=== PATIENT | female | born 1995 | race Caucasian/White ===

== ENCOUNTER 2022-05-14 08:37 | Outpatient (REF) | payer MEDICAID, SELFPAY ==
--- OUTSIDE RECORDS SUMMARY | 2022-05-14 08:39 | XMS_ITS | CCD ---
:1995 Author Care Team Providers Name Role Phone CAIN DUENAS, MERI Kauffman Attending Physician Unavailable Vital Signs Unknown or Not Available. Allergies Allergy Code Allergy Type Reaction Status IBUPROFEN 5640 Drug allergy KIDNEY DISFUNCTION, CRYSTALI ZED URINE Active MOTRIN 20231120 Drug allergy KIDNEY FAILURE Active ASPIRIN 1191 Drug allergy KIDNEY FAILURE Active Procedures Procedure Code Procedure Type Date Repair, Intermediate, Face, Ears, Eyelids, Nose, 06713 CPT 12/20/2020 Lips And/Or Mucous Membranes; 2.5 cm Or Less Excise, Benign Skin Lesion, Incl Margins, 30134 CPT 12/20/2020 Face/Ears/Eyelids/Nose/Lips/Muco; Excised Diam 0.6-1.0 cm History of Immunizations Unknown or Not Available. Problems No Known Problems Results Unknown or Not Available. Active Medications Medication Code Dose Units Frequency Route Modification Start Date/Time Cyclobenzaprine 395788 1 TABLET EVERY 8 ORAL 01/17/20 22 10MG Oral Tablet HOURS 07:17 Prescription Detail TAKE 1 TABLET ORAL EVERY 8 H OURS prn muscle spasm or back pain Medications Administered During Visit Unknown or Not Available. Encounters Encounter Diagnosis Diagnosis Code Start Date Epidermal cyst L720 12/20/2020 Social History Smoking Status Code Start Date End Date Current every day smoker [id number] 2005 Patient Decision Aids Unknown or Not Available. Discharge Instructions You were admitted to [facility] on 12/20/2020 10:43 with a principal diagnosis of Epidermal cyst You had the following procedures done: Repair, Intermediate, Face, Ears, Eyelids, Nose, Lips And/Or Mucous Membranes; 2.5 cm Or Less Excise, Benign Skin Lesion, Incl Margins, Face/Ears/Eyelids/Nose/Lips/Muc o; Excised Diam 0.6-1.0 cm You were discharged from [facility] on 12/20/2020 10:43 Should you have any questions prior to d ischarge, please contact a member of your healthcare team. If you have left the spital and have any questions, please contact your primary care physician. Chief Complaint and Reason For Visit Unknown or Not Available. Function Status Unknown or Not Available. Plan of Care Unknown or Not Available. Referral/Transition of Care Unknown or Not Available.
--- OUTSIDE RECORDS SUMMARY | 2022-05-14 08:40 | XMS_ITS | CCD ---
:1995 Author Care Team Providers Name Role Phone JODEE MALCOLM Attending Physician Unavailable JODEE MALCOLM Er Physician 1 Unavailable FERNANDO Warren Registered Nurse Unavailable Vital Signs Vital Sign Value Unit Date/Time Recent/Initial? BMI (Body Mass Index) 27.84 kg/m^2 01/16/2022 06:40 In itial VS Weight Measured 188 lbs 01/16/2022 06:40 Initial VS Height 68.9 in 01/16/2022 06:40 Initial VS BSA (Body Surface Area) 2.04 m^2 01/16/2022 06:40 Initial VS BP Systolic 129 mmHg 01/16/2022 06:40 Initial VS BP Diastolic 79 mmHg 01/16/2022 06:40 Initial VS Respiratory Rate 18 bpm 01/16/2022 06:40 Initial VS Heart Rate 89 bpm 01/16/2022 06:40 Initial VS O2 % BldC Oximetry 100 % 01/16/2022 06:40 Initi al VS Body Temperature 36.4 degrees 01/16/2022 06:40 Initial VS Allergies Allergy Code Allergy Type Reaction Status LISINOPRIL 39744 Drug allergy Active IBUPROFEN 5640 Drug allergy KIDNEY DISFUNCTION, CRYSTALI ZED URINE Active MOTRIN 118395 Drug allergy KIDNEY FAILURE Active ASPIRIN 1191 Drug allergy KIDNEY FAILURE Active Procedures Unknown or Not Available. History of Immunizations Unknown or Not Available. Problems No Known Problems Results Unknown or Not Available. Active Medications Medications Administered During Visit Medication Dose Units Frequency Route Date/Time of L ast Dose DIAZEPAM TABLET: 5MG 5 MG X1 PO 08/2021 07:25 ACETAMINOPHEN TABLET: 325MG 975 MG X1 PO 01/16/2022 07:25 Encounters Encounter Diagnosis Diagnosis Code Start Date Torticollis M436 01/16/2022 Social History Smoking Status Code Start Date End Date Current every day smoker [id number] 2005 Patient Decision Aids Unknown or Not Available. Discharge Instructions You were admitted to [facility] on 01/16/2022 06:26 with a principal diagnosis of Torticollis You were discharged from [facility] on 01/16/2022 07:48 Should you have any questions prior to d ischarge, please contact a member of your healthcare team. If you have left the ho spital and have any questions, please contact your primary care physician. Chief Complaint and Reason For Visit Chief Complaint Date of Onset NECK AND SHOULDER PAIN R SIDE Function Status Unknown or Not Available. Plan of Care Unknown or Not Available. Referral/Transition of Care Unknown or Not Available.
[2022-05-14 15:01] LABS: Anion Gap 9.9 mmol/L (3-11); BUN 13 mg/dL (7-18); CO2 27.1 mmol/L (21.0-32.0); CREATININE 0.8 mg/dL (0.55-1.02); Calcium 9.5 mg/dL (8.5-10.1); Chloride 102 mmol/L (98-107); Glucose 109 mg/dL (74-106); Sodium 139 mmol/L (136-145)
[2022-05-14 15:28] LABS: Hemoglobin A1C 5.4 % (<5.7)
== END 2022-05-14 08:38 | disposition home or self-care (01) ==
LOC: NCHCN 08:37
PROVIDERS: Visit Provider Nurse Practitioner Family
DX: I10 Essential (primary) hypertension (principal); E66.8 Other obesity; Z13.1 Encounter for screening for diabetes mellitus
CPT/HCPCS: 80048; 83036

== ENCOUNTER 2022-05-21 11:16 | Outpatient (REF) | payer MEDICAID, SELFPAY ==
--- NOTE | 2022-05-21 10:00 | PAPFT_PTH ---
PATIENT: Fidelina Pierre LOC: [facility] U#:[id number] AGE/SX: 26/F ROOM: RE05/21/[address]: Kiesha Nolen : 1995 BED: DIS: 05/21/2022 SPEC #: [id number] RECD: 05/21/22 17:52 STATUS: PASQUALE RENeel #: [id number] NANCY: 05/21/22 10:[address]: Kiesha Rodriguez DEPT: [facility] Cytology RECD BY: Rosy Hernandez Tissues: 1 - CX/ENDOCX FOR PAP SMEARS Procedures: PAP THIN PREP/[facility] Screening Comments: [id number]
== END 2022-05-21 11:17 | disposition home or self-care (01) ==
LOC: NCHCN 11:16
PROVIDERS: Visit Provider Nurse Practitioner Family
DX: Z12.4 Encounter for screening for malignant neoplasm of cervix (principal)
CPT/HCPCS: 88142

== ENCOUNTER 2022-08-20 13:35 | Outpatient (REF) | payer MEDICAID, SELFPAY ==
[2022-08-20 14:50] LABS: BUN 11 mg/dL (7-18); CREATININE 0.8 mg/dL (0.55-1.02); Chloride 108 mmol/L (98-107); Estimated GFR 102.86 (mL/min/1.73m2)
[2022-08-20 22:24] LABS: Anion Gap 9.3 mmol/L (3-11); CO2 21.7 mmol/L (21.0-32.0); Calcium 9.3 mg/dL (8.5-10.1); Glucose 93 mg/dL (74-106); Potassium 4.2 mmol/L (3.5-5.1); Sodium 139 mmol/L (136-145)
== END 2022-08-20 13:36 | disposition home or self-care (01) ==
LOC: NCHCN 13:35
PROVIDERS: PCP Nurse Practitioner Family; Visit Provider Nurse Practitioner Family
DX: I10 Essential (primary) hypertension (principal); E87.6 Hypokalemia
CPT/HCPCS: 80048

== ENCOUNTER 2023-07-28 14:18 | Outpatient (REF) | payer BC, SELFPAY ==
[2023-07-28 15:29] LABS: HCT 42.1 % (36.0-46.0); HGB 14.3 g/dL (11.2-15.7); MCV 91 fL (80-95); MPV 10.4 fL (8.0-11.0); Platelet Count 284 10^3/uL (130-400); RBC 4.62 10^6/uL (3.93-5.22); RDW 12.5 % (11.7-14.6); RDW-SD 41.9 fL; WBC 10.22 10^3/uL (4.4-10.8)
[2023-07-28 15:47] LABS: Anion Gap 10.7 mmol/L (3-11); BUN 15 mg/dL (7-18); CO2 27.3 mmol/L (21.0-32.0); CREATININE 0.8 mg/dL (0.55-1.02); Calcium 9.9 mg/dL (8.5-10.1); Chloride 105 mmol/L (98-107); Estimated GFR 102.22 (mL/min/1.73m2); Glucose 99 mg/dL (74-106); Potassium 3.4 mmol/L (3.5-5.1); Sodium 143 mmol/L (136-145); TSH (W/Ref FT4) 1.13 uIU/mL (0.36-3.74)
== END 2023-07-28 14:19 | disposition home or self-care (01) ==
LOC: NCHCN 14:18
PROVIDERS: PCP Nurse Practitioner Family; Visit Provider Registered Nurse
DX: I10 Essential (primary) hypertension (principal); N93.9 Abnormal uterine and vaginal bleeding, unspecified
CPT/HCPCS: 80048; 85027; 84443

== ENCOUNTER 2023-07-29 15:53 | Outpatient (REF) | payer BC, SELFPAY ==
[2023-08-01 14:35] LABS: Helicobacter pylori Ag, Feces Negative (Negative)
== END 2023-07-29 15:54 | disposition home or self-care (01) ==
LOC: NCHCN 15:53
PROVIDERS: PCP Nurse Practitioner Family; Visit Provider Registered Nurse
DX: R10.13 Epigastric pain (principal)
CPT/HCPCS: 87338

== ENCOUNTER 2024-07-20 13:20 | Outpatient (REF) | payer BC, SELFPAY ==
[2024-07-20 14:44] LABS: ALT 19 U/L (14-59); AST 13 U/L (15-37); Albumin 3.3 g/dL (3.4-5.0); Alkaline Phosphatase 62 U/L (46-116); Anion Gap 10.8 mmol/L (3-11); BUN 12 mg/dL (7-18); Bilirubin, Total 0.2 mg/dL (0.2-1.0); CO2 27.2 mmol/L (21.0-32.0); CREATININE 0.7 mg/dL (0.55-1.02); Calcium 9.4 mg/dL (8.5-10.1); Calculated LDL 84 mg/dL (<100); Chloride 103 mmol/L (98-107); Cholesterol 169 mg/dL (<200); Estimated GFR 119.24 (mL/min/1.73m2); Glucose 96 mg/dL (74-106); HDL Cholesterol 59 mg/dL (>or=50); Sodium 141 mmol/L (136-145); TSH 1.41 uIU/mL (0.36-3.74); Total Protein 7.2 g/dL (6.4-8.2); Triglyceride 133 mg/dL (<150)
[2024-07-20 14:47] LABS: Hemoglobin A1C 5.4 % (<5.7)
[2024-07-20 15:00] LABS: Potassium 2.9 mmol/L (3.5-5.1)
== END 2024-07-20 13:21 | disposition home or self-care (01) ==
LOC: NCHCN 13:20
PROVIDERS: PCP Nurse Practitioner Family; Visit Provider Nurse Practitioner Family
DX: I10 Essential (primary) hypertension (principal); E66.9 Obesity, unspecified
CPT/HCPCS: 80053; 80061; 83036; 84443

== ENCOUNTER 2024-07-28 09:04 | Outpatient (REF) | payer BC, SELFPAY ==
[2024-07-28 15:33] LABS: Anion Gap 9.9 mmol/L (3-11); BUN 16 mg/dL (7-18); CO2 28.1 mmol/L (21.0-32.0); CREATININE 0.8 mg/dL (0.55-1.02); Calcium 9.7 mg/dL (8.5-10.1); Chloride 103 mmol/L (98-107); Estimated GFR 101.59 (mL/min/1.73m2); Glucose 114 mg/dL (74-106); Sodium 141 mmol/L (136-145)
== END 2024-07-28 09:05 | disposition home or self-care (01) ==
LOC: NCHCN 09:04
PROVIDERS: PCP Nurse Practitioner Family; Visit Provider Nurse Practitioner Family
DX: E87.6 Hypokalemia (principal)
CPT/HCPCS: 80048

== ENCOUNTER 2024-08-16 12:31 | Outpatient (REF) | payer BC, SELFPAY ==
[2024-08-16 15:31] LABS: BUN 10 mg/dL (7-18); CREATININE 0.7 mg/dL (0.55-1.02); Calcium 8.9 mg/dL (8.5-10.1); Chloride 104 mmol/L (98-107); Estimated GFR 119.24 (mL/min/1.73m2); Glucose 98 mg/dL (74-106); Potassium 3.1 mmol/L (3.5-5.1); Sodium 140 mmol/L (136-145)
== END 2024-08-16 12:32 | disposition home or self-care (01) ==
LOC: NCHCN 12:31
PROVIDERS: PCP Nurse Practitioner Family; Visit Provider Nurse Practitioner Family
DX: I10 Essential (primary) hypertension (principal)
CPT/HCPCS: 80048

== ENCOUNTER 2024-09-14 12:16 | Outpatient (REF) | payer BC, SELFPAY ==
[2024-09-14 16:31] LABS: Abs Immature Grans 0.03 10^3/uL (0.0-0.06); Absolute Eosinophil Count 0.18 10^3/uL (0.0-0.7); Absolute Lymphocyte Count 2.75 10^3/uL (1.2-3.4); Absolute Monocyte Count 0.42 10^3/uL (0.1-0.8); Basophils % 0.5 %; Eosinophils % 1.6 %; HGB 13.9 g/dL (11.2-15.7); Immature Grans % 0.3 %; Lymphocytes % 25.1 %; MCHC 34.8 % (32.0-36.0); MCV 89 fL (80-95); Monocytes % 3.8 %; Neutrophils % 68.7 %; Platelet Count 326 10^3/uL (130-400); RBC 4.49 10^6/uL (3.93-5.22); RDW 11.8 % (11.7-14.6); WBC 10.95 10^3/uL (4.4-10.8)
[2024-09-14 16:34] LABS: Absolute Basophil Count 0.05 10^3/uL (0.0-0.2); Absolute Neutrophil Count 7.52 10^3/uL (1.2-6.7)
[2024-09-14 17:01] LABS: ALT 19 U/L (14-59); AST 12 U/L (15-37); Albumin 3.6 g/dL (3.4-5.0); Alkaline Phosphatase 70 U/L (46-116); Anion Gap 9.5 mmol/L (3-11); BUN 12 mg/dL (7-18); Bilirubin, Total 0.2 mg/dL (0.2-1.0); CO2 25.5 mmol/L (21.0-32.0); CREATININE 0.7 mg/dL (0.55-1.02); Calcium 9.3 mg/dL (8.5-10.1); Chloride 105 mmol/L (98-107); Estimated GFR 119.24 (mL/min/1.73m2); Glucose 100 mg/dL (74-106); Lipase 34 U/L (<78); Potassium 3.5 mmol/L (3.5-5.1); Sodium 140 mmol/L (136-145); Total Protein 7.5 g/dL (6.4-8.2)
== END 2024-09-14 12:17 | disposition home or self-care (01) ==
LOC: NCHCN 12:16
PROVIDERS: PCP Nurse Practitioner Family; Visit Provider Family Medicine
DX: R10.9 Unspecified abdominal pain (principal)
CPT/HCPCS: 80053; 83690; 85025; 87086

== ENCOUNTER 2025-01-17 19:10 | Outpatient (REF) | payer MEDICAID, SELFPAY ==
[2025-01-17 19:35] LABS: Anion Gap 10.7 mmol/L (3-11); BUN 16 mg/dL (7-18); CO2 27.3 mmol/L (21.0-32.0); Calcium 9.3 mg/dL (8.5-10.1); Chloride 103 mmol/L (98-107); Estimated GFR 88.20 (mL/min/1.73m2); Glucose 111 mg/dL (74-106); Potassium 3.4 mmol/L (3.5-5.1); Sodium 141 mmol/L (136-145)
== END 2025-01-17 19:11 | disposition home or self-care (01) ==
LOC: NCHCN 19:10
PROVIDERS: PCP Nurse Practitioner Family; Visit Provider Nurse Practitioner Family
DX: I10 Essential (primary) hypertension (principal)
CPT/HCPCS: 80048

== ENCOUNTER 2025-02-24 17:00 | Outpatient (REF) | payer MEDICAID, SELFPAY ==
--- NOTE | 2025-02-24 08:20 | PAPFT_PTH ---
PATIENT: Fidelina Pierre LOC: [facility]#:[id number] AGE/SX: 29/F ROOM: RE02/24/[address]: Kiesha Nolen : 1995 BED: DIS: 02/24/2025 SPEC #: [id number] RECD: 02/24/25 17:22 STATUS: PASQUALE TOUSSAINT #: [id number] NACNY: 02/24/25 08:[address]: Kiesha Rodriguez DEPT: [facility] Cytology RECD BY: Rosy Hernandez Tissues: 1 - CX/ENDOCX FOR PAP SMEARS Procedures: PAP THIN PREP/[facility] Screening HPV DNA PROBE Comments: [id number] (HPV 16 & 18/45)
== END 2025-02-24 17:01 | disposition home or self-care (01) ==
LOC: NCHCN 17:00
PROVIDERS: PCP Nurse Practitioner Family; Visit Provider Nurse Practitioner Family
DX: Z12.4 Encounter for screening for malignant neoplasm of cervix (principal)
CPT/HCPCS: 88142; 82043; 82570; 87624